=== PATIENT | female | born 1975 | race Hispanic/Latino ===

== ENCOUNTER 2019-03-10 08:14 | Day surgery (SDC) | payer BC ==
[2019-03-09 15:45] LABS: BASOPHILS % (AUTO) 0.6 % (0.0-5.0); EOSINOPHILS % (AUTO) 3.5 % (0.0-8.0); HEMATOCRIT 37.6 % (36-48); LYMPHOCYTES % (AUTO) 20.8 % (21.0-51.0); MEAN CORPUSCULAR HEMOGLOBIN 25.7 pg (27.0-33.0); MEAN CORPUSCULAR HGB CONC 31.6 g/dL (32.0-36.0); MEAN CORPUSCULAR VOLUME 81.2 fL (79-99); MONOCYTES % (AUTO) 8.1 % (3.0-13.0); NEUTROPHILS % (AUTO) 66.7 % (40.0-77.0); PLATELET COUNT (AUTO) 267 K/uL (130-400); RED BLOOD CELL COUNT(AUTO) 4.63 MIL/uL (4.00-5.50); RED CELL DISTRIBUTION WIDTH 17.1 % (11.0-15.5); WHITE BLOOD COUNT (AUTO) 6.8 K/uL (4.8-10.8)
[2019-03-09 15:53] VITALS: BP 111/56
[2019-03-10] VITALS (17 sets, daily range): BP systolic 88–111; BP diastolic 49–74
[~2019-03-10] VITALS: Ht 162.6 cm; Wt 73.2 kg
[2019-03-10] MEDS ORDERED: CALDOLOR 800MG+NS 250ML 250 ML IV ONE (08:37)
[2019-03-10] MEDS ORDERED: CEFAZOLIN SODIUM 1 GM VIAL ONE (09:28)
[2019-03-10] MEDS ORDERED: LACTATED RINGERS 1000ML 1,000 ML IV ONE (09:28)
[2019-03-10] MEDS ORDERED: LIDOCAINE PF 2% 5ML ABBOJECT ONE (11:02)
[2019-03-10] MEDS ORDERED: DEXAMETHASONE SOD PHOSPHATE 10MG/ML 1ML VIAL ONE ×2 (11:02→11:05)
[2019-03-10] MEDS ORDERED: SUCCINYLCHOLINE 200MG/10ML SYR ONE (11:02)
[2019-03-10] MEDS ORDERED: MIDAZOLAM HCL 1 MG/ML 2ML VIAL ONE (11:02)
[2019-03-10] MEDS ORDERED: ONDANSETRON HCL 4 MG/2 ML VIAL ONE (11:02)
[2019-03-10] MEDS ORDERED: PROPOFOL 10 MG/ML 20ML VIAL IV ONE (11:03)
[2019-03-10] MEDS ORDERED: FENTANYL CITRATE PF 50 MCG/1 ML 2ML VIAL ONE (11:03)
[2019-03-10] MEDS ORDERED: GLYCOPYRROLATE 1 MG/5 ML SYRINGE ONE (11:03)
[2019-03-10] MEDS ORDERED: NEOSTIGMINE 5MG/5ML SYR IV ONE (11:03)
[2019-03-10] MEDS ORDERED: ROCURONIUM 10MG/1ML SYR 10 MG/ML ML ONE (11:03)
--- NOTE | 2019-03-10 13:35 | NUR ---
post received pt from [facility], s/p hysteroscopy , D&C, bertin pad in place slight vaginal bleeding noted. pt awake and alert, denied any pain or discomforts. spouse at bedside. vs stable. plan of care discuss with pt/ spouse. both verbalized understanding. call light within reach
--- NOTE | 2019-03-10 14:10 | NUR ---
dc pt dc home via wc, no distress noted. pt denied any pain or discomforts. pt accompanied by spouse.
== END 2019-03-10 14:10 | disposition home or self-care (01) ==
LOC: DAH 08:14
PROVIDERS: ATTEND Obstetrics & Gynecology
DX: N92.1 Excessive and frequent menstruation with irregular cycle (principal); D25.9 Leiomyoma of uterus, unspecified; N84.0 Polyp of corpus uteri; G43.909 Migraine, unspecified, not intractable, without status migrainosus; Z98.890 Other specified postprocedural states; Z80.3 Family history of malignant neoplasm of breast; Z82.49 Family history of ischemic heart disease and other diseases of the circulatory system; Z83.3 Family history of diabetes mellitus
CPT/HCPCS: 36415; 58563; 84703; 85025; 86850; 86900; 86901; 88305; A4215; A4221; A4222; A4223; A4351; A4355; A4663; A6260; J0330; J0690; J1100 ×2; J1741; J2001; J2250; J2405; J2704; J2710; J3010; J3490; J7030 ×2; J7120

== ENCOUNTER 2023-08-04 07:21 | Day surgery (SDC) | payer BC ==
[~2023-08-04] VITALS: Ht 162.6 cm; Wt 80.7 kg
[2023-08-04] VITALS (11 sets, daily range): BP systolic 104–117; BP diastolic 51–69; PULSE 62–76; RESP 15–17
[2023-08-04] MEDS ORDERED: DOCU-280 PO (08:23)
[2023-08-04] MEDS ORDERED: ACET-2743 PO (08:23)
[2023-08-04] MEDS ORDERED: LEVE750T66 PO (08:23)
[2023-08-04] MEDS ORDERED: MELA5TAB21 PO (08:23)
[2023-08-04] MEDS ORDERED: PROGESTERONE PO (08:23)
[2023-08-04] MEDS: 0.9%NACL 1000ML 1,000 ML IV ONE (08:31)
[2023-08-04] MEDS ORDERED: PROPOFOL 10 MG/ML 20ML VIAL IV ONE (09:58)
== END 2023-08-04 11:40 | disposition home or self-care (01) ==
LOC: ENDO 07:21
PROVIDERS: ATTEND Internal Medicine Gastroenterology
DX: Z12.11 Encounter for screening for malignant neoplasm of colon (principal); D12.3 Benign neoplasm of transverse colon; K21.00 Gastro-esophageal reflux disease with esophagitis, without bleeding; G40.909 Epilepsy, unspecified, not intractable, without status epilepticus; E66.9 Obesity, unspecified; E78.5 Hyperlipidemia, unspecified; Z68.30 Body mass index [BMI] 30.0-30.9, adult; Z82.49 Family history of ischemic heart disease and other diseases of the circulatory system; Z83.3 Family history of diabetes mellitus; Z79.84 Long term (current) use of oral hypoglycemic drugs; Z79.899 Other long term (current) drug therapy; Z98.891 History of uterine scar from previous surgery; Z90.710 Acquired absence of both cervix and uterus; Z98.890 Other specified postprocedural states; Z85.841 Personal history of malignant neoplasm of brain
CPT/HCPCS: 45385; J7030; J2704; A4620; A4215 ×2; A4223; A4222; A4221; A4663; A4606; J3490